=== PATIENT | female | born 2000 | race Caucasian/White ===

== ENCOUNTER → 2024-02-25 14:20 | Outpatient (REF) | payer BC, SELFPAY | LOC: RAD 14:20 | PROVIDERS: ATTENDING PHYSICIAN Otolaryngology Facial Plastic Surgery; FAMILY PHYSICIAN Family Medicine | DX: J32.0 Chronic maxillary sinusitis (principal); J30.1 Allergic rhinitis due to pollen; J34.3 Hypertrophy of nasal turbinates | CPT/HCPCS: 70486 ==

== ENCOUNTER → 2024-07-28 18:12 | Outpatient (REF) | payer BC, SELFPAY | LOC: RAD 18:12 | PROVIDERS: ATTENDING PHYSICIAN Family Medicine | DX: M25.562 Pain in left knee (principal) | CPT/HCPCS: 73564 ==

== ENCOUNTER 2024-11-05 20:01 | Inpatient (IN) | payer BC, SELFPAY ==
[2024-11-05 16:23] VITALS: BP 111/66
--- NOTE | 2024-11-05 17:07 | EDRN ---
Pt states she arrives for fainting, blood in stool,and starting on Thursday fever over 103. Pt has been weak and having blood in her stool which has been worse in last couple of days. Pt unable to walk. Pt having full body chills and cramping all
over. Pt was very dehydrated on visit to [facility] a couple of days ago. Pt inc of stool and unable to keep food or liquids down. Has vomiting. Pt trembling when walking. Mother in room w/ pt.
[2024-11-05 17:13] VITALS: BMI 25.1
[2024-11-05 17:18] VITALS: BP 108/67
[2024-11-05 17:50] LABS: % Basophils 0.5 % (0-2); % Eosinophils 0.5 % (0-6); % Immature Granulocytes 0.4 % (0-0.5); % Monocytes 13.8 % (1.7-9.3); % Neutrophils 65.8 % (42.2-75.2); Absolute Lymphocytes 1.1 10^3/uL (1.2-3.4); Absolute Monocytes 0.8 10^3/uL (0.1-0.6); Absolute Neutrophils 3.7 10^3/uL (1.4-6.5); Hematocrit 37.9 % (37.0-47.0); Hemoglobin 13.5 g/dL (12.0-16.0); INR 1.02; Mean Corp Hgb Conc. 35.6 g/dL (33.0-37.0); Mean Corpuscular Hgb 30.5 pg (27.0-31.0); Mean Corpuscular Volume 85.6 fL (81.0-99.0); Mean Platelet Volume 9.6 fL (7.4-10.4); Nucleated Red Blood Cells % 0 %; PT 13.7 Sec (11.4-14.6); Platelet Count 254 10^3/uL (130-400); Red Blood Cell Count 4.43 10^6/uL (4.20-5.40); Red Cell Dist. Width 11.8 % (11.5-14.5); White Blood Cell Count 5.6 10^3/uL (4.8-10.8)
[2024-11-05 17:56] LABS: ALT (SGPT) 13 U/L (0-35); AST (SGOT) 19 U/L (14-36); Albumin 3.9 g/dl (3.5-5.0); Alkaline Phosphatase 46 U/L (38-126); Blood Urea Nitrogen 7 mg/dl (7-17); Calcium 8.7 mg/dl (8.4-10.2); Carbon Dioxide 26 mmol/L (22-30); Chloride 104 mmol/L (98-107); Estimated Creatinine Clearance 119 ml/min; Glucose 93 mg/dl (70-99); Potassium 3.7 mmol/L (3.5-5.1); Sodium 139 mmol/L (135-145); Total Bilirubin 0.7 mg/dl (0.2-1.3); Total Protein 6.8 g/dl (6.3-8.2); eGFR > 60.00
--- NOTE | 2024-11-05 17:56 | EDRN ---
Pt filled stool container w/ urine as well as stool. Unable to get a stool spec at this time. Pt will attempt again.
[2024-11-05 18:00] VITALS: BP 123/62
--- NOTE | 2024-11-05 18:17 | EDRN ---
Charlie BOWEN in room drawing ABO2 at this time.
--- NOTE | 2024-11-05 18:30 | EDRN ---
Dr. Ocampo in room w/pt at this time.
--- NOTE | 2024-11-05 19:11 | ED.GENMED ---
History of Present Illness
General
Chief Complaint: Rectal Bleeding
Source: patient and family (mother)
Exam Limitations: none
Time Seen by Provider: 11/05/24 18:27
Nursing documentation reviewed up to this point in time: agreed with
History of Present Illness
History of Present Illness:
24-year-old female with no reported chronic medical issues presents with her mother for evaluation of abdominal pain associate with nausea/vomiting/diarrhea. Patient reports symptoms have been ongoing for the past 5 days. She says that she has had
fever with associated profuse bloody diarrhea and nonbloody emesis. She says she is having intermittent abdominal cramping which is diffuse/nonlocalized. She lives in [place] and initially went to [facility] emergency department on Thursday and
was diagnosed with gastroenteritis and prescribed Bentyl, Zofran, probiotic; her symptoms continued and she was feeling dehydrated and so she returned on Thursday�at that point she had stool culture sent off and again was discharged after some
fluids. She said she received a call that she was positive for Campylobacter. No antibiotics were prescribed, symptoms were worsening and she feels she is not able to stay hydrated at home and so she came to the ER today. She denies any shortness
of breath or chest pain. She denies any other complaints. She denies any recent travel or antibiotics.
Review of Systems
Review of Systems
All Other Systems: ROS reviewed and negative except as documented in HPI and ROS
Constitutional: Reports fever, fatigue and chills
EENT: Denies sore throat or runny nose
Respiratory: Denies cough or trouble breathing
Cardiac: Denies chest pain
ABD/GI: Reports abdominal pain, nausea, vomiting, diarrhea and bloody stools
: Denies dysuria or flank pain
Musculoskeletal: Denies neck pain
Neurological: Reports dizzy; Denies headache
Phy Exam
Physical Exam
Physical Exam:
General: Awake, alert, oriented x3; no acute distress
Head: Normocephalic, atraumatic
Eyes: Conjunctiva normal, EOMI
Throat: Airway intact, dry mucous membranes
Neck: Trachea midline, supple without meningismus
Lungs: Clear to auscultation bilaterally, no wheezing, rales, rhonchi
Heart: Tachycardia with regular rhythm, no murmurs, gallops, or rubs
Abd: Soft, non distended, nontender to deep palpation
Neuro: No gross deficits
Skin: no rash
Extremities: No edema in extremities, equal pulses in all extremities
Scores
Heart Failure Risk
Heart Failure Risk Score: Not Applicable
Heart Score for Chest Pain Patients
STEMI patient?: Not applicable
Withdrawal Assessment of Alcohol
Withdrawal Assessment Completed?: Not applicable
Sepsis
Sepsis Screening
Sepsis Assessment: Sepsis Ruled Out
Sepsis Screen
Sepsis Screen: Sepsis Ruled Out
Date: 11/05/24
Time: 19:18
Course
Orders/Labs/Results
Orders:
Orders
11/05/24 17:12
Electrocardiogram (*1) Urgent
Reason for Study: Chest Pain
Cardiac Monitoring- Treatment ONCE
EKG- Treatment ONCE
IV Insert/Care/Rem.- Treatment PRN
11/05/24 17:30
Complete Blood Count/With Diff Urgent
Comprehensive Metabolic Panel Urgent
Lactic Acid Urgent
Prothrombin Time Urgent
Blood Culture Urgent
SHU Source: Blood/Venous
Specimen Description:
11/05/24 17:36
Type And Crossmatch [Type+Screen] Urgent
11/05/24 18:00
Blood Culture Urgent
SHU Source: Blood/Venous
Specimen Description:
11/05/24 18:17
ABO2 Routine
BBK Wristband Number:
Associate notified that ABO2 has been ordered: [id number]
Date: 11/05/24
Time: 17:43
Charge Master Analyst ID: [id number]
11/05/24 18:28
Norovirus by PCR Urgent
SHU Source: Feces/Stool
Specimen Description:
Date Specimen was Collected: 11/05/24
Time Specimen was Collected: 19:12
STOOL [C difficile Antigen & Toxins] Urgent
SHU Source: Feces/Stool
Specimen Description:
Date Specimen was Collected: 11/05/24
Time Specimen was Collected: 19:12
Stool Culture Urgent
SHU Source: Feces/Stool
Specimen Description:
Date Specimen was Collected: 11/05/24
Time Specimen was Collected: 19:12
11/05/24 18:41
0.9% Sodium Chloride 1000 ml [Nss] 1,000 ml IV BOLUS
Acetaminophen [Tylenol] 650 mg PO NOW STA
11/05/24 18:45
0.9% Sodium Chloride 1000 ml [Nss] 1,000 ml IV 85 mls/hr
11/05/24 19:00
INFECTIOUS DISEASE CONSULT Routine
Consulting Provider: Bg Portillo
Was physician already notified: Yes
Azithromycin 500 mg/250 ml [Zithromax Infusion] 500 mg in 250 ml IV NOW
11/05/24 19:11
Morphine Sulfate 4 mg IV NOW STA
Ondansetron Injectable [Zofran] 4 mg IV NOW STA
11/05/24 19:12
Electrocardiogram (*1) Urgent
Reason for Study: QTc Monitoring
EKG- Treatment ONCE
Abnormal Lab Results
11/05/24
17:30
Absolute Lymphs (auto) 1.1 L 10^3/uL
(1.2-3.4)
Absolute Monos (auto) 0.8 H 10^3/uL
(0.1-0.6)
Lymphocytes % 19.0 L %
(20.5-51.1)
Monocytes % 13.8 H %
(1.7-9.3)
11/05/24 17:30
11/05/24 17:30
Vital Signs
Initial and Last Documented VS:
Initial Vital Signs
Temp Pulse Resp BP Pulse Ox
37.1 C 101 18 111/66 99
11/05/24 16:23 11/05/24 16:23 11/05/24 16:23 11/05/24 16:23 11/05/24 16:23
Last Documented Vital Signs
Temp Pulse Resp BP Pulse Ox
38.1 C H 82 18 123/62 97
11/05/24 17:41 11/05/24 18:15 11/05/24 18:15 11/05/24 18:00 11/05/24 19:11
MDM/Problems Addressed
Differential Diagnosis Includes:
Gastroenteritis, colitis
MDM/Problems Addressed:
24-year-old female presents for evaluation of nausea/vomiting/bloody diarrhea associate with intermittent cramping that has been ongoing for the past few days. This is her third ED visit this week for symptoms. She did receive a call that she was
positive for Campylobacter on stool studies sent on Thursday. She is not yet on antibiotics. Vital signs here significant for mild tachycardia and low-grade fever. Blood pressure normal. Physical exam as above. She had lab work sent in triage
including a CBC and a CMP which showed no clinically significant abnormalities. Type and screen sent off. Will check stool studies. Hold off on abdominal imaging with benign abdominal exam low suspicion for surgical pathology. Her history is
consistent with gastroenteritis and she already had positive stool culture for Campylobacter�I was able to review her records from [facility] the online portal which patient provided. I discussed the case with gastroenterology as well as with
infectious disease, will plan to start IV azithromycin. Will admit for continued treatment given failure of outpatient therapy to control symptoms, now with third ER visit this week. Discussed with hospitalist for admission.
*Pulse Oximetry
SaO2: 97
Oxygen Mode of Delivery: Room air
Patient hypoxic: no (97%)
*Critical Care Note
Total Time (30-74mins, 75-104mins- exclusive of procedures): Not Applicable
Data Reviewed
Review of Other/Old Records Reveals: Records (Reviewed external records from [facility] which patient provided)
Source: patient and family
Further Testing Considered But Not Given:
Considered CT of the abdomen pelvis
Patient Management
Discussion with other providers: Hospitalist (Discussed with hospitalist) and Media Executive (Discussed with gastroenterology, discussed with infectious disease)
Escalation/DeEscalation of care consider admission/obs:
Admission indicated
ED Attending Note
-
Portions of this chart may have been created with voice recognition software.� Occasional wrong word or��sound alike� substitutions may have occurred due to the inherent limitations of voice recognition software.
Discharge Plan
Departure
Patient Disposition: Admit
Date of Disposition: 11/05/24
Time of Disposition: 19:12
Admit to doctor: Dax
Presentation/result/management discussed w/ accepting MD/DO: Hospitalist
Discharge Problem:
Gastroenteritis, Campylobacter intestinal infection
Prescriptions:
No Action
norgestimate-ethinyl estradiol [Analisa] 0.25-35 mg-mcg Tablet
1 tab PO DAILY
pseudoephedrine-guaifenesin [Mucus D] 60-600 mg Tablet Extended Release 12 Hr
1 tab PO .PRN PRN (Reason: congestion)
ibuprofen 200 mg Tablet
400 - 600 mg PO PRN PRN (Reason: pain)
pseudoephedrine HCl 30 mg Tablet
30 mg PO .PRNBID
fluticasone propionate 50 mcg/actuation [place],Suspension
2 spray INTRANASAL DAILY
methylphenidate HCl 36 mg Tablet Extended Release 24hr
36 mg PO DAILY
Patient Comments:
med in short supply, substituted 18 mg until refilled
Saline Nasal 0.65 % Aerosol,[place]
1 spray INTRANASAL .PRNQID
Afrin Saline Nasal Mist 0.65 % Mist
2 - 4 spray INTRANASAL PRN PRN (Reason: congestion)
ferrous sulfate 324 mg (65 mg iron) Tablet,Delayed Release (Dr/Ec)
65 mg PO DAILY
Referrals:
Ryan Donnelly DO [Family Provider, Family Practice]
Interventions
Interventions:
*Risk Screen - Suicide Last Done: 11/05/24 16:23
*General Assessment Last Done: 11/05/24 17:13
*Neglect/Abuse Screening Last Done: 11/05/24 16:23
*ED- Fall Risk Assessment Last Done: 11/05/24 17:13
*ED COVID-19 Vaccine History Last Done: 11/05/24 17:13
IK-Oknxeo-Elqlatddhf Assessment Last Done: 11/05/24 17:39
ED- Cardiac Assessment Last Done: 11/05/24 17:39
ED- Pulmonary Assessment Last Done: 11/05/24 17:39
Discharge Date and Time
Print Language: YAKUT
[2024-11-05] MEDS: TYLENOL 650 MG PO (19:13)
[2024-11-05] MEDS: ZITHROMAX INFUSION 250 IV (19:16)
[2024-11-05] MEDS: NSS 1000 IV ×3 (19:16→21:24)
[2024-11-05] MEDS: ZOFRAN 4 MG IV (19:21)
[2024-11-05] MEDS: MORPHINE SULFATE 4 MG IV (19:22)
--- NOTE | 2024-11-05 19:33 | HPS.HSE ---
Family Physician
-
Family Physician: Ryan Donnelly
Chief Complaint
-
bloody diarrhea
History of Present Illness
24-year-old female past medical history of presenting with fevers, profuse diarrhea that is bloody, nausea and vomiting starting 5 days ago. Patient was traveling in [facility] when she developed symptoms of fever 5 days ago followed by
initially diffuse watery diarrhea and lightheadedness and syncope the next day. She went to the emergency room in [place] and had stool studies performed. She was given IV fluids. She went to the emergency room again a second time and
discharged. She later notified from the [facility] of [facility] that she tested positive for Campylobacter in the stool. She continues to have persistent diarrhea but no vomiting at this time. Has generalized abdominal discomfort. Diarrhea later
became bloody. No blood in the vomit. Denies any sick contacts.
She smokes marijuana occasionally. Denies alcohol or nicotine.
Medical History
Past Medical History
Past Medical History: Reports None
Past Surgical History: Reports Other (wisdom teeth surgery )
Social History
Tobacco: Non-smoker
Alcohol: None
Drug: None
Family History
Family History: Not pertinent
Allergies / Home Medications
Allergies reflects when Allergies were last updated in [facility].
Home Medications with original date entered in [employer]
Allergy/Medication List:
Allergies
Allergy/AdvReac Type Severity Reaction Status Date / Time
No Known Allergies Allergy Unverified 11/05/24 16:23
Home Medications
ferrous sulfate 324 mg (65 mg iron) tablet,delayed release 65 mg PO DAILY 08/27/22
norgestimate 0.25 mg-ethinyl estradiol 0.035 mg tablet (Analisa) 1 tab PO DAILY 08/27/22
Lactobac no.2-Bifidobac no.1-S. thermo 112.5 billion cell capsule (Visbiome) 1 cap PO DAILY 11/05/24
aluminum-mag hydroxide-simethicone 200 mg-200 mg-20 mg/5 mL oral susp (Chloe-Lanta) 10 ml PO DAILYPRN PRN gerd 11/05/24
dicyclomine 20 mg tablet 20 mg PO QIDPRN PRN spasms 11/05/24
ajtrakirg-MOA-RA-acetaminophen 7.5 mg-60 [id number]/30mL oral liqd 15 ml PO HSPRN PRN cough 11/05/24
fluticasone propionate 93 mcg/actuation breath activated aerosol (Xhance) 2 spray intranasal BID 11/05/24
ondansetron HCl 4 mg tablet 4 mg PO Q6HPRN PRN nausea 11/05/24
Review of Systems
-
History Source: Patient
A 12 point ROS was completed and negative except as noted: Yes
Constitutional: Reports No Symptoms
EENT: Reports No Symptoms
Respiratory: Reports No Symptoms
Cardiac: Reports No Symptoms
Abdomen/GI: Reports See HPI
: Reports No Symptoms
Musculoskeletal: Reports No Symptoms
Skin: Reports No Symptoms
Neurological: Reports No Symptoms
Endocrine: Reports No Symptoms
Hematologic/Lymphatic: Reports No Symptoms
Psych: Reports No Symptoms
Physical Exam
Vital Signs
Vital Signs
Temp Pulse Resp BP Pulse Ox
100.6 F H 82 18 123/62 97
11/05/24 17:41 11/05/24 18:15 11/05/24 18:15 11/05/24 18:00 11/05/24 19:11
Physical Exam
General: Well Developed, Well Nourished and No Apparent Distress
HEENT: NormoCephalic, Moist mucous membranes and Atraumatic
Respiratory: Clear
Cardiac: S1/S2 and Regular Rhythm; No Murmur or Rub
GI: Soft, Non Distended, Normal Bowel Sounds and Tender (diffusely ); No Organomegaly
Rectal: Deferred by Provider
Musculoskeletal: No Clubbing, No Cyanosis and No Edema
Skin: No Rash
Neuro: Nonfocal/grossly intact
Laboratory Results
-
11/05/24 17:30
11/05/24 17:30
Laboratory Results
PT 13.7 Sec (11.4-14.6) 11/05/24 17:30
INR 1.02 11/05/24 17:30
Lactic Acid 1.0 mmol/L (0.7-2.0) 11/05/24 17:30
Total Bilirubin 0.7 mg/dl (0.2-1.3) 11/05/24 17:30
AST 19 U/L (14-36) 11/05/24 17:30
ALT 13 U/L (0-35) 11/05/24 17:30
Alkaline Phosphatase 46 U/L (38-126) 11/05/24 17:30
Data Reviewed
-
Lab Data: Labs Reviewed by me
Old Records: Reviewed
Impression/Plan
-
IMPRESSION:
PLAN:
# Acute gastroenteritis/colitis with bloody diarrhea secondary to Campylobacter
- Blood cultures, stool culture, norovirus, C. difficile pending
- N.p.o.
- IV fluids
- ID recommended azithromycin
- Zofran
- Continue probiotic, dicyclomine
Occasional marijuana use
Full code
DVT prophylaxis SCDs
N.p.o.
[2024-11-05 20:10] VITALS: BP 103/71
[2024-11-05 20:53] VITALS: BP 124/72
[2024-11-05] MEDS: MELATONIN 5 MG PO (22:24)
[2024-11-06] MEDS: ZOFRAN 4 MG IV ×2 (04:25→16:38)
[2024-11-06] MEDS: BENTYL 20 MG PO (04:53)
[2024-11-06] MEDS: NSS 1000 IV ×2 (05:33→15:16)
[2024-11-06 06:00] VITALS: BMI 24.2
[2024-11-06 06:02] LABS: Hematocrit 32.9 % (37.0-47.0); Hemoglobin 11.6 g/dL (12.0-16.0); Mean Corp Hgb Conc. 35.3 g/dL (33.0-37.0); Mean Corpuscular Hgb 30.8 pg (27.0-31.0); Mean Corpuscular Volume 87.3 fL (81.0-99.0); Mean Platelet Volume 9.7 fL (7.4-10.4); Platelet Count 207 10^3/uL (130-400); Red Blood Cell Count 3.77 10^6/uL (4.20-5.40); Red Cell Dist. Width 11.9 % (11.5-14.5); White Blood Cell Count 4.5 10^3/uL (4.8-10.8)
[2024-11-06 06:11] LABS: ALT (SGPT) 10 U/L (0-35); AST (SGOT) 16 U/L (14-36); Albumin 2.9 g/dl (3.5-5.0); Alkaline Phosphatase 38 U/L (38-126); Blood Urea Nitrogen 7 mg/dl (7-17); Calcium 7.7 mg/dl (8.4-10.2); Carbon Dioxide 23 mmol/L (22-30); Chloride 111 mmol/L (98-107); Estimated Creatinine Clearance 119 ml/min; Glucose 83 mg/dl (70-99); Potassium 3.5 mmol/L (3.5-5.1); Sodium 139 mmol/L (135-145); Total Bilirubin 0.5 mg/dl (0.2-1.3); Total Protein 5.3 g/dl (6.3-8.2); eGFR > 60.00
[2024-11-06 06:32] LABS: Absolute Neutrophils -Man Diff 1.8 10^3/uL (1.4-6.5); Band Neutrophils 0 % (0-3); Lymphocytes 51 % (20-51); Monocytes 7 % (2-9); Segmented Neutrophils 42 % (42-75)
[2024-11-06 06:33] LABS: Normal RBC Morphology Yes; Platelets Checked Yes; Total Cells Counted 100
[2024-11-06 07:20] VITALS: BP 108/59
[2024-11-06] MEDS: VISBIOME 1 CAP PO (09:00)
[2024-11-06] MEDS: FEOSOL 325 MG PO (09:00)
--- NOTE | 2024-11-06 09:17 | W.PN.HOSP.TC ---
Today's Communication/Plan
-
renew IVF
clears
cont IV azithromycin
await cultures
Assessment / Plan
Assessment / Plan
pt is a 24 year old female
Acute Campylobacter gastroenteritis/colitis with bloody diarrhea--found in [facility] when she went to ER there--symptoms ongoing--family brought here here--apprec ID--started on IV azithromycin, cont for now--renew IVF--cont Bentyl and probiotic--await
cultures--clears
Occasional marijuana use
DVT proph--SCDs
code status--Full code
Anticipated Discharge: 24 - 48 hours
Subjective/Interval History
-
Date of Service: November 06, 2024
pt just woke up--father at bedside with lots of questions....
Objective Data
-
Labs:
Laboratory Results
11/06/24
05:22
WBC 4.5 L
Hgb 11.6 L
Hct 32.9 L
Plt Count 207
Sodium 139
Potassium 3.5
Chloride 111 H
Carbon Dioxide 23
BUN 7
Creatinine 0.7
Glucose 83
Calcium 7.7 L
Total Bilirubin 0.5
AST 16
ALT 10
Alkaline Phosphatase 38
Vital Signs:
max temp for 24 hours
11/05/24
17:41
Temp 100.6 F H
Vital Signs
Temp Pulse Resp BP Pulse Ox
98.1 F 65 16 108/59 100
11/06/24 07:20 11/06/24 07:20 11/06/24 07:20 11/06/24 07:20 11/06/24 07:20
Review of Systems
-
All other systems: Reviewed and negative
Abdomen/GI: Reports Abdominal Pain, Nausea and Diarrhea
Physical Exam
-
General: Well Developed, Well Nourished and No Apparent Distress
HEENT: Normocephalic and Atraumatic
Respiratory: Clear to Auscultation; Negative Wheezes or Rhonchi
Cardiac: Regular Rhythm and S1/S2; Negative Murmur
GI: Soft, Nondistended, Normal Bowel Sounds and Tender (minimal diffuse tenderness--no guarding or rebound)
Musculoskeletal: No Clubbing, No Cyanosis and No Edema
Neuro: Awake
Psych: Calm
--- NOTE | 2024-11-06 10:26 | CON.ID ---
Consultation
-
Date/Time Consultation Requested: 11/05/2024 1900
Date/Time Consultation Performed: 11/06/2024 0850
Requesting Provider: Dr. Ocampo
Performing Provider: Dr. Portillo
Reason for Consultation: Bloody diarrhea
Chief Complaint / Past History
History of Present Illness
Camila Campbell is a 24-year-old female being evaluated at the request of Dr. Floyd in regards to Campylobacter�associated diarrhea. History is obtained from chart review, along with patient interview. Additional history was obtained from the
patient's family who was at the bedside.
The patient resides in [facility] and reports that she was well until 5 days ago when she began to feel weak and feverish while at work. She notes that she left work and went to her apartment. She took her temperature later that day and was
found to be 101 degrees. The next day she developed diarrhea and continued to have fever. The following day (3 days ago) she developed profuse diarrhea along with generalized bodyaches. She also reports that she felt dizzy and she may have
blacked out for. She also reports an episode of nausea and vomiting. Her family went up to see her and she was taken by ambulance to the [place] ER where she received IV fluids and was discharged, only to go back approximately 2 hours later
when she was found to have blood in her stool. A stool culture was performed, and she was again discharged home. 2 days ago the cultures returned positive for Campylobacter. Yesterday, her family went again to see her and brought her to the local
area and directly to the ER here at [facility]. Case was discussed with the ER physician, and she was started on IV Azithromycin.
Today, she reports she still does not feel 'great'. She still has some blood in the stool.
She denies any recent travel. There are no pets.
Past History
Past Medical History: None
Past Surgical History: None
Allergy History:
No Known Allergies Allergy (Unverified 11/05/24 16:23)
Medications Reviewed: Yes
Current Antibiotics:
Azithromycin
Social History
Tobacco: Non-Smoker
Alcohol: Occasional
Drug: Marijuana (occasional)
Personal: Single
Living: With Roomate
Employment: Employed
Family History
Family History: Not Pertinent
Review of Systems
Vital Signs
Temp Pulse Resp BP Pulse Ox
98.1 F 65 16 108/59 100
11/06/24 07:20 11/06/24 07:20 11/06/24 07:20 11/06/24 07:20 11/06/24 07:20
Physical Exam
Physical Exam
Constitutional: No Acute Distress, Well Developed, Comfortable and Non-toxic
Head: Normocephalic
Eyes: Pupils Equal, Pupils Round, No Conjunctival Hemorrhage and Sclera Anicteric
Oral: No Thrush and No Ulcers
Cardiovascular: Regular Rate and S1/S2; Negative S3/S4
Pulmonary: Clear; Negative Wheezes, Rales or Rhonchi
Gastrointestinal: Soft, Tender, Non Distended, Normal Bowel Sounds, No Rebound and No Guarding
Genito-Urinary: Negative Finch
Extremities: Negative Edema, Clubbing, Cyanosis or Erythema
Skin: Warm and Dry; Negative Rash or Jaundice
Neurological: Awake and Alert
Psychological: Calm
.
Lab / Diagnostic Study Results
11/06/24 05:22
11/06/24 05:22
Abs Immat Gran (auto) 0.0 10^3/uL (0-0.05) 11/05/24 17:30
Absolute Neuts (auto) 3.7 10^3/uL (1.4-6.5) 11/05/24 17:30
Absolute Lymphs (auto) 1.1 10^3/uL (1.2-3.4) L 11/05/24 17:30
Absolute Monos (auto) 0.8 10^3/uL (0.1-0.6) H 11/05/24 17:30
Absolute Basos (auto) 0.0 10^3/uL (0-0.2) 11/05/24 17:30
Total Counted 100 11/06/24 05:22
Immature Gran % 0.4 % (0-0.5) 11/05/24 17:30
Neutrophils % 65.8 % (42.2-75.2) 11/05/24 17:30
Lymphocytes % 19.0 % (20.5-51.1) L 11/05/24 17:30
Monocytes % 13.8 % (1.7-9.3) H 11/05/24 17:30
Eosinophils % 0.5 % (0-6) 11/05/24 17:30
Basophils % 0.5 % (0-2) 11/05/24 17:30
Abs Neuts (Manual) 1.8 10^3/uL (1.4-6.5) 11/06/24 05:22
Segmented Neutrophils 42 % (42-75) 11/06/24 05:22
Band Neutrophils 0 % (0-3) 11/06/24 05:22
Lymphocytes (Manual) 51 % (20-51) 11/06/24 05:22
PT 13.7 Sec (11.4-14.6) 11/05/24 17:30
INR 1.02 11/05/24 17:30
Lactic Acid 1.0 mmol/L (0.7-2.0) 11/05/24 17:30
Microbiology Results
Micro:
11/05/24 19:23 C. difficile GDH Antigen & Toxins - Final
Feces/Stool Negative for toxigenic C.difficile
- Final
Negative for Norovirus GI and GII.
11/05/24 19:23 Salmonella/Shigella Culture - Pending
Feces/Stool Campylobacter Culture - Pending
Shiga Toxin Test - Pending
11/05/24 18:00 Blood Culture - Pending
Blood/Venous
11/05/24 17:30 Blood Culture - Pending
Blood/Venous
Assessment / Plan
Campylobacter associated diarrhea
Generalized malaise
Recommendations:
Case previously discussed with ER, and discussed with Hospitalist.
Continue with IV Azithromycin for today.
Follow pending blood cultures to ensure no bacteremia.
The patient continues to improve clinically, can transition to oral Azithromycin to complete a course.
Monitor white count and temperature curve.
Monitor stooling, including consistency and amount.
Care Review
Plan reviewed with: Physician (Hospitalist)
[2024-11-06 15:00] VITALS: BP 95/60
[2024-11-06] MEDS: ZITHROMAX INFUSION 250 IV (17:48)
[2024-11-06] MEDS: MORPHINE SULFATE 0.5 MG IV (21:10)
[2024-11-06] MEDS: MELATONIN 5 MG PO (22:43)
[2024-11-06 23:52] VITALS: BP 93/48
[2024-11-07] MEDS: NSS 1000 IV (02:19)
[2024-11-07 06:34] LABS: Hematocrit 33.1 % (37.0-47.0); Hemoglobin 11.5 g/dL (12.0-16.0); Mean Corp Hgb Conc. 34.7 g/dL (33.0-37.0); Mean Corpuscular Hgb 30.7 pg (27.0-31.0); Mean Corpuscular Volume 88.3 fL (81.0-99.0); Mean Platelet Volume 9.8 fL (7.4-10.4); Platelet Count 262 10^3/uL (130-400); Red Blood Cell Count 3.75 10^6/uL (4.20-5.40); Red Cell Dist. Width 11.9 % (11.5-14.5); White Blood Cell Count 5.3 10^3/uL (4.8-10.8)
[2024-11-07 06:55] LABS: Blood Urea Nitrogen 6 mg/dl (7-17); Calcium 8.3 mg/dl (8.4-10.2); Carbon Dioxide 27 mmol/L (22-30); Chloride 108 mmol/L (98-107); Estimated Creatinine Clearance 105 ml/min; Glucose 86 mg/dl (70-99); Sodium 140 mmol/L (135-145); eGFR > 60.00
[2024-11-07 07:00] VITALS: BP 97/61
[2024-11-07 07:27] LABS: Absolute Neutrophils -Man Diff 1.9 10^3/uL (1.4-6.5); Atypical Lymphocytes 3 %; Band Neutrophils 2 % (0-3); Eosinophils 1 % (0-6); Lymphocytes 48 % (20-51); Monocytes 11 % (2-9); Segmented Neutrophils 35 % (42-75)
[2024-11-07 07:31] LABS: Normal RBC Morphology Yes; Platelets Checked Yes; Total Cells Counted 100
[2024-11-07] MEDS: FEOSOL 325 MG PO (08:53)
--- NOTE | 2024-11-07 10:31 | W.PN.ID1 ---
Date of Service
Date of Service: November 07, 2024
Today's Communication
Transition to oral Azithromycin. See below�
Assessment / Plan
Campylobacter associated gastroenteritis.
Generalized malaise
Recommendations:
Blood cultures negative.
Patient overall clinically improved.
Transition to oral Azithromycin 500 mg every 24 hours for an additional 3 days.
Patient and mother counseled extensively on unsanitary practices, including good handwashing.
Chief Complaint
-: Other (Campylobacter colitis/gastroenteritis)
Subjective / Review of Systems
Patient seen and examined. Reports feeling improved. Still with some diarrhea, but notes that the bloody diarrhea has improved. Still with some abdominal cramping, but overall feels better.
Review of Systems: No Fever
Vital Signs / Physical Exam
Vital Signs
Vital Signs
Temp Pulse Resp BP Pulse Ox
98.1 F 74 18 97/61 99
11/07/24 07:00 11/07/24 07:00 11/07/24 07:00 11/07/24 07:00 11/07/24 07:00
Physical Exam
Constitutional: No Acute Distress, Well Developed, Comfortable and Non-toxic
Eyes: No Conjunctival Hemorrhage and Sclera Anicteric
Cardiovascular: S1/S2; Negative S3/S4
Pulmonary: Non Labored
Gastrointestinal: Soft, Tender (minimal), Non Distended, Normal Bowel Sounds, No Rebound and No Guarding
Neurological: Awake and Alert
Psychological: Calm
Objective Data
Lab Data
Lab Results
11/07/24 05:23
11/07/24 05:23
PT 13.7 Sec (11.4-14.6) 11/05/24 17:30
INR 1.02 11/05/24 17:30
Estimated Creat Clear 105 ml/min 11/07/24 05:23
Lactic Acid 1.0 mmol/L (0.7-2.0) 11/05/24 17:30
Total Bilirubin 0.5 mg/dl (0.2-1.3) 11/06/24 05:22
AST 16 U/L (14-36) 11/06/24 05:22
ALT 10 U/L (0-35) 11/06/24 05:22
Alkaline Phosphatase 38 U/L (38-126) 11/06/24 05:22
Most recent labs reviewed.
Micro Results:
11/05/24 19:23 Salmonella/Shigella Culture - Pending
Feces/Stool Campylobacter Culture - Pending
Shiga Toxin Test - Final
No E. coli Shiga Toxin 1 or 2 detected.
11/05/24 18:00 Blood Culture - Preliminary
Blood/Venous No Growth in 24 hours- Final report to follow
11/05/24 17:30 Blood Culture - Preliminary
Blood/Venous No Growth in 24 hours- Final report to follow
11/05/24 19:23 C. difficile GDH Antigen & Toxins - Final
Feces/Stool Negative for toxigenic C.difficile
- Final
Negative for Norovirus GI and GII.
Care Review
Plan reviewed with: Physician (Hospitalist)
--- NOTE | 2024-11-07 13:20 | W.PN.HOSP.TC ---
Addendum entered and electronically signed by Debbi Floyd MD 11/07/24 14:12:
I saw and evaluated the patient independently. I reviewed the resident�s note and agree with findings and plan as documented by Dr. Cabral.
GENERAL: well developed, well nourished, female in no apparent distress
HEENT: NC/AT
HEART: regular rate and rhythm, +S1, +S2
LUNGS : clear to auscultation bilaterally
ABDOM: soft, nontender, nondistended, + bowel sounds
EXT: no cyanosis, clubbing, or edema
NEUROLOGIC: grossly intact
Acute Campylobacter gastroenteritis/colitis with bloody diarrhea--found in [facility] when she went to ER there--symptoms ongoing--family brought here here--apprec ID--started on IV azithromycin, transition to oral azithromycin for 3 more days--blood
cultures neg
anemia--iron deficiency--not uncommon in menstruating females--cont iron supps as tolerated
Occasional marijuana use
DVT proph--SCDs
code status--Full code
Original Note:
Today's Communication/Plan
-
Plan to discharge today.
Assessment / Plan
Assessment / Plan
Assessment:
This is a 24 y/o female with pmhx of anemia who presented to the ED on 11/05/2024 with five days of fever, non-bloody emesis, bloody diarrhea, and stool culture positive for Campylobacter from [place] ED.
Campylobacter Infection
-Day 3 of antibiotics. Per Infectious Disease recommendation, transition to oral Azithromycin 500mg every 25 hours for an additional 3 days.
Iron deficiency Anemia
-Continue home medications
GERD
-Continue home medications
Code Status--Full code
Anticipated Discharge: Today
Subjective/Interval History
-
Date of Service: November 07, 2024
Per patient, she is doing much better today with decreased nausea. Her last bowel movement was ~7PM last night and was more solid, last few bowel movements have been loose but without blood. She is able to tolerate food and is interested in going
home.
Objective Data
-
Labs:
Laboratory Results
11/07/24
05:23
WBC 5.3
Hgb 11.5 L
Hct 33.1 L
Plt Count 262 D
Sodium 140
Potassium 4.0
Chloride 108 H
Carbon Dioxide 27
BUN 6 L
Creatinine 0.8
Glucose 86
Calcium 8.3 L
Vital Signs:
Vital Signs
Temp Pulse Resp BP Pulse Ox
98.1 F 74 18 97/61 99
11/07/24 07:00 11/07/24 07:00 11/07/24 07:00 11/07/24 07:00 11/07/24 07:00
I&O
11/06/24 11/07/24 11/08/24
06:59 06:59 06:59
Intake Total 2490 / 2490
Balance 2490 / 2490
Review of Systems
-
History Source: Patient
Respiratory: Reports No Symptoms
Cardiac: Reports No Symptoms
Abdomen/GI: Reports Abdominal Pain, Nausea and Diarrhea
Physical Exam
-
General: Well Developed, Well Nourished, No Apparent Distress and Comfortable
HEENT: Atraumatic
Respiratory: Clear to Auscultation
Cardiac: Regular Rhythm and S1/S2
GI: Soft and Nondistended
Neuro: Awake, Alert and Oriented
Psych: Calm
--- NOTE | 2024-11-07 13:50 | W.DCSUMMARY ---
Addendum entered and electronically signed by Debbi Floyd MD 11/07/24 14:14:
Read, reviewed, and agree. See same day progress note for additional details. Time spent coordinating care, DC planning, review of DC plan of care with resident, transition of care, review of records in EMR, med rec, consults, notes, d/w
consultants, nursing, family, and CM = 31 minutes
Original Note:
Discharge Summary
Discharge Data
Date of Admission: 11/05/24
Date of Discharge: 11/07/24
-
Pending Results: No
Hospital Course
Primary Diagnosis:
-Acute Campylobacter Gastroenteritis with Colitis and Bloody Diarrhea
Secondary Diagnosis:
-Gastrointestinal Reflux Disease
-Iron Deficiency Anemia
This is a 24 y/o female with a pmhx of iron deficiency anemia and GERD who presented to the ED on 11/05/2024 with five days of fever, abdominal cramping, nausea, nonbloody emesis and bloody diarrhea. She had originally been seen twice at [facility] leading up to her admission, during which time a stool culture was obtained which was positive for Campylobacter.
She was started on IV Azithromycin in the ED, IV fluids, as well as zofran for nausea. Probiotics and dicyclomine originally prescribed at [facility] were continued. Stool and blood cultures were obtained. During her hospital course her symptoms
gradually improved to the point where she was able to tolerate PO intake again. She was transitioned to Azithromycin 500mg PO once daily for an additional 3 days and encouraged to follow up with her PCP after discharge.
Discharge Plan
-
Patient Disposition: Home (Routine Discharge)
Discharge Diagnosis/Procedures: Acute Campylobacter gastroenteritis with colitis and bloody diarrhea
Condition: Good
Diet: As tolerated and Regular
Activity: As tolerated
Driving Restrictions: As prior to admission
Bathing Restrictions: None
Referrals:
Ryan Donnelly DO [Family Provider, Family Practice] - in less than 1 week
Prescriptions:
New
azithromycin 500 mg tablet
500 mg PO DAILY 3 Days Qty: 3 0RF
Continued
norgestimate-ethinyl estradiol [Analisa] 0.25-35 mg-mcg Tablet
1 tab PO DAILY
ferrous sulfate 324 mg (65 mg iron) Tablet,Delayed Release (Dr/Ec)
65 mg PO DAILY
qjvluqgky-FTX-UV-acetaminophen 7.5-60-30-1,000 mg/30 mL Liquid
15 ml PO HSPRN PRN (Reason: cough)
ondansetron HCl 4 mg Tablet
4 mg PO Q6HPRN PRN (Reason: nausea)
dicyclomine 20 mg Tablet
20 mg PO QIDPRN PRN (Reason: spasms)
alum-mag hydroxide-simeth [Chloe-Lanta] 200-200-20 mg/5 mL Suspension
10 ml PO DAILYPRN PRN (Reason: gerd)
Visbiome 112.5 billion cell Capsule
1 cap PO DAILY
Xhance 93 mcg/actuation Aerosol Breath Activated
2 spray INTRANASAL BID
Discharge Orders:
Discharge Patient (As Directed); Ordered 11/07/24
Ordered By: Nia Cabral
Discharge Date and Time
Print Language: INDONESIAN
--- NOTE | 2024-11-07 14:11 | CM ---
Patient seen at bedside with physicians on . Patient mother present and plan is for discharge home today with no needs. CM will continue to follow for discharge planning needs.
Plan; home with no needs at this time.
[2024-11-07 14:39] VITALS: BP 107/60
== END 2024-11-07 14:53 | disposition home or self-care (01) | DRG 373 ==
LOC: 2 NORTH 20:01
PROVIDERS: ADMITTING PHYSICIAN Hospitalist; ATTENDING PHYSICIAN Internal Medicine; CONSULT PHYSICIAN Internal Medicine Infectious Disease; EMERGENCY PHYSICIAN Emergency Medicine; FAMILY PHYSICIAN Family Medicine
DX: A04.5 Campylobacter enteritis (principal); K21.9 Gastro-esophageal reflux disease without esophagitis; D50.9 Iron deficiency anemia, unspecified
CPT/HCPCS: 80048; 80053; 83605; 83735; 85025; 85610; 86850; 86900; 86901; 87040; 87045; 87046; 87077; 87324; 87427; 87449; 87798; 93005; 96365; 96375; 99285